=== PATIENT | female | born 2000 | race Caucasian/White ===

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

== ENCOUNTER → 2020-03-15 14:55 | Outpatient (CLI) | payer SELFPAY ==
[2020-03-15 17:00] LABS: Absolute Lymphocyte Count 1.71 X10^3/uL (0.83-4.51); Absolute Neutrophil Count 9.7 X10^3/uL (2.0-7.7); Basophil# 0.04 X10^3/uL; Basophil% 0.3 % (0-1); Eosinophil# 0.16 X10^3/uL; Eosinophils% 1.3 % (0-5); Hematocrit 36.2 % (37-47); Hemoglobin 12.4 g/dL (12.0-15.0); Lymphocyte # 1.71 X10^3/ul (4.0); Lymphocyte % 13.9 % (19-41); Mean Corp Hgb Conc 34.3 g/dL (32-36); Mean Corpuscular Hgb 29.5 pg (27.0-32.0); Mean Corpuscular Volume 86.2 fL (81-99); Mean Platelet Vol. 11.6 fl (6.2-12.0); Monocyte% 5.7 % (0-10); NRBC Flagged by Analyzer 0 % (0-5); Neutrophil # 9.65 X10^3/uL (2.7-7.7); Neutrophil % 78.6 % (47-70); Platelet Count 202 K/mm3 (150-450); RBC Distribution Width CV 12.9 % (11.6-14.6); RBC Distribution Width SD 39.9 fl (35.1-43.9); White Blood Count 12.3 K/mm3 (4.4-11.0)
[2020-03-15 17:04] LABS: Color, Urine Yellow (Yellow); Glucose, Dipstick Normal (Normal); Ketone-Dipstick Negative (Negative); Leukocyte Esterase-Dipstick 25 /ul (Negative); Nitrite-Dipstick Negative (Negative); Occult Blood-Urine 10 /ul (Negative); Protein-Dipstick Negative (Negative); Urine Bilirubin Dipstick Negative (Negative); Urine Clarity Sl. Cloudy (Clear); Urine Urobilinogen Normal (Normal)
[2020-03-15 17:42] LABS: Amphetamine Urine VISTA NEGATIVE (<1000 ng/mL); Barbiturate Urine VISTA NEGATIVE (< 200 ng/mL); Benzodiazepine Urine VISTA NEGATIVE (< 200 ng/mL); Cocaine Urine VISTA NEGATIVE (< 300 ng/mL); Ecstacy Urine VISTA NEGATIVE (< 500 ng/mL); Methadone Urine VISTA NEGATIVE (< 300 ng/mL); PCP Urine VISTA NEGATIVE (< 25 ng/mL); THC Urine VISTA NEGATIVE (< 50 ng/mL); Vista UDS pH Range 5
[2020-03-16 10:13] LABS: HIV - WCH Non-Reactive (Nonreactive); Hepatitis B Surface Antigen Non-Reactive (Nonreactive); Hepatitis C Antibody Non-Reactive (Nonreactive); Rubella IgG > 500.0 IU/mL
[2020-03-18 20:07] LABS: Chlamydia By Nucleic Acid AMP Negative (Negative); Gonococcus By Nucleic Acid AMP Negative (Negative)
[2020-03-18 20:13] LABS: V-Zoster IgG (Immunity) > 4000 index (Immune >165)
[2020-03-21 03:02] LABS: Prenatal RPR NONREACTIVE (NONREACTIVE)
== END ==
PROVIDERS: Visit Provider Student in an Organized Health Care Education/Training Program
DX: Z34.81 Encounter for supervision of other normal pregnancy, first trimester (principal); Z11.3 Encounter for screening for infections with a predominantly sexual mode of transmission
CPT/HCPCS: 36415; 80307; 81002; 85025; 86703; 86762; 86787; 86803; 87086; 87088; 87340; 87491; 87591

== ENCOUNTER → 2020-07-02 10:48 | Outpatient (CLI) | payer SELFPAY ==
[2020-07-02 14:28] LABS: Hematocrit 33.7 % (37-47); Hemoglobin 11.4 g/dL (12.0-15.0); Mean Corp Hgb Conc 33.8 g/dL (32-36); Mean Corpuscular Hgb 30.6 pg (27.0-32.0); Mean Corpuscular Volume 90.3 fL (81-99); Mean Platelet Vol. 10.5 fl (6.2-12.0); Platelet Count 223 K/mm3 (150-450); RBC Distribution Width CV 12.9 % (11.6-14.6); RBC Distribution Width SD 42.5 fl (35.1-43.9); Red Blood Count 3.73 M/mm3 (4.2-5.4); White Blood Count 8.1 K/mm3 (4.4-11.0)
[2020-07-02 14:33] LABS: Glucose Challenge Gest 1H 50g 127 mg/dL (70-140)
== END ==
PROVIDERS: Visit Provider Student in an Organized Health Care Education/Training Program
DX: Z34.82 Encounter for supervision of other normal pregnancy, second trimester (principal)
CPT/HCPCS: 36415; 82950; 85027

== ENCOUNTER → 2020-09-13 | Outpatient (CLI) | payer SELFPAY | END | disposition home or self-care (01) | LOC: LABSPEC 11:50 | PROVIDERS: Visit Provider Student in an Organized Health Care Education/Training Program | DX: Z36.85 Encounter for antenatal screening for Streptococcus B (principal) | CPT/HCPCS: 87081 ==

== ENCOUNTER → 2020-10-08 | Outpatient (CLI) | payer SELFPAY | END | disposition home or self-care (01) | LOC: LABSPEC 15:32 | PROVIDERS: Visit Provider Student in an Organized Health Care Education/Training Program | DX: Z36.85 Encounter for antenatal screening for Streptococcus B (principal) | CPT/HCPCS: 87081 ==

== ENCOUNTER → 2020-10-09 16:33 | Outpatient (CLI) | payer SELFPAY | PROVIDERS: Referring Provider Student in an Organized Health Care Education/Training Program; Visit Provider Student in an Organized Health Care Education/Training Program | DX: Z03.818 Encounter for observation for suspected exposure to other biological agents ruled out (principal) | CPT/HCPCS: 87635; C9803; U0002 ==

== ENCOUNTER 2020-10-10 02:10 | Inpatient (IN) | payer SELFPAY ==
[2020-10-10] VITALS (26 sets, daily range): BP systolic 99–120; BP diastolic 57–74; PULSE 88–137; RESP 16–18; TEMP 36.2–37.1; O2SAT 81–100; BMI 22.9
[2020-10-10] MEDS: 0.9% Saline Lock 10 ML Syringe IV ×3 (02:20→09:23)
[2020-10-10 02:33] LABS: Absolute Lymphocyte Count 3.08 X10^3/uL (0.83-4.51); Absolute Neutrophil Count 10.2 X10^3/uL (2.0-7.7); Basophil# 0.03 X10^3/uL; Basophil% 0.2 % (0-1); Eosinophil# 0.02 X10^3/uL; Eosinophils% 0.1 % (0-5); Hematocrit 37.5 % (37-47); Hemoglobin 12.8 g/dL (12.0-15.0); Lymphocyte # 3.08 X10^3/ul (0.83-4.51); Lymphocyte % 21.6 % (19-41); Mean Corp Hgb Conc 34.1 g/dL (32-36); Mean Corpuscular Hgb 28.8 pg (27.0-32.0); Mean Corpuscular Volume 84.3 fL (81-99); Mean Platelet Vol. 10.7 fl (6.2-12.0); Monocyte# 0.85 X10^3/uL; NRBC Flagged by Analyzer 0 % (0-5); Neutrophil # 10.17 X10^3/uL (2.7-7.7); Neutrophil % 71.5 % (47-70); Platelet Count 231 K/mm3 (150-450); RBC Distribution Width CV 13.5 % (11.6-14.6); RBC Distribution Width SD 41.5 fl (35.1-43.9); Red Blood Count 4.45 M/mm3 (4.2-5.4); White Blood Count 14.2 K/mm3 (4.4-11.0)
--- NOTE | 2020-10-10 02:57 | PCM.HP.BLA ---
History and Physical Date of Admission: 10/10/20 OG ANTEPARTUM RECORD - HISTORY AND PHYSICAL (10/10/2020) Name: TERRI RAMIREZ History of this : This is a 20 year old [id number] presents at 41 wks + 0 days gestation in active labor. OB Physician: Monie Mathews 's Physician: Terri Flores M.D. ...................................................................... : 99 Age: 20 Address: [address] [place] [address] Phone: [phone] Insurance Carrier: Emergency Contact: RACQUEL RAMIREZ [phone] ...................................................................... Final BETHANY: 10/03/20 By Ultrasound: 11 weeks 1 day PARITY: (G-Total Pregnancies P-Fullterm,Premature,Induced AB,Spont AB, Ectopics, Multiple,Living) BETHANY CONFIRMATION: By LMP: 12/28/19 Initial Exam: 10/03/20 By First Ultrasound Exam: 10/03/20 Final BETHANY: 10/03/20 OB PROBLEM LIST: Declines Genetics testing. EPDS 2 ALLERGIES: No Known Allergies MEDICATIONS: Calcium 500 + D 500 mg(1,250 mg)-400 unit chewable tablet Three po once daily [place] 3-6-9 1,200 mg capsule One pill by mouth once a day 28 mg iron-800 mcg tablet One pill by mouth once a day SOCIAL HISTORY: Smoking - Never Alcohol Use - RARELY not while Diet - balanced Diet, occ coffee or tea and Water tries for one gal Lifestyle - moderate stress lifestyle and Exercise - housework. Enc 20 min walking daily. Employer - [employer] Job Description - Illicit Drug Use - denies use of street drugs Sexual Activity - Residence - . LIves in a small house. Place of - [place] Spouse-Sig Other Name - Racquel Ramirez Spouse-Sig Other Occupation - self employed- construction Spouse-Sig Other Phone No - [phone] Children Name(s) - Lita ( 10/18/18) EB PRIOR DELIVERY HISTORY DEL DATE GEST LAB WT LB WT OZ TYPE ANES LABOR TX October 16 40 15 7 5 Vag Epidural No ANTEPARTUM FLOW CHART VISIT GE RTC FU F F NV U U DATE WK MD WKS HT PN HR M SS BP ED WT NV GL D EF ST __ ____ ___ __ __ ___ __ __ __ ___ __ __ __ ___ __ 11 September 40 CM 3 40 V + + 118/62 0 142 3 60 -1 04 September 39 CM 1 40 V + + 118/66 0 140 - - 3 60 -1 27 Apr 38 CM 1 39 V + + 122/60 0 140 - - 22 Apr 38 CM 1 38 V + + 98/64 0 139 tr ne 16 Apr 37 CM 1 37 V + + 106/68 0 138 - - 02 Aug 35 CM 2 35 V + + 102/68 0 135 tr - 16 Jul 32 CM 2 31 + + 112/62 0 135 - - 01 Jul 30 CM 2 30 + + 102/60 0 132 tr ne 15 Feb 28 CM 2 28 + + 102/60 0 132 tr - 02 Feb 26 CM 2 26 + + 118/68 0 130 - - 08 May 23 CM 4 23 + + 102/72 0 125 tr - 08 Apr 18 CM 4 + + 116/62 0 118 - - 13 Mar 16 + + 116/64 113 - - ANTEPARTUM NOTE(S): Oct 08 2020: Oct 01 2020: Sep 24 2020: Sep 19 2020: Sep 13 2020: GBS and LARC Aug 30 2020: Informed of GBS at next visit, decreased FM Aug 13 2020: Jul 29 2020: Jul 15 2020: Jul 02 2020: Jun 07 2020: round ligament pain May 07 2020: Apr 12 2020: COMPREHENSIVE ANTEPARTUM NOTE(S): Oct 08 2020: Terri reporting runs of ctx's, no leaking fluid, no spotting. Good FM. IOL scheduled for . She would like cervix checked, membranes stripped and IOL changed to 10/14/20--confirmed ok w/Nataliya in OB. Per Dr. John Reyes, Terri advised to get COVID test done tomorrow as she has not done this yet. GBS repeated today. NST today for Post Dates. Oct 08 2020: 40/5w visit. CE 3 cm, membranes stripped. Desires to push induction from 10/10 to 10/14. Discussed risks of post dates incluing, but not limited to IUFD. She had reactive NST today, will come Wednesday for one as well. GBS recollected. F/u Wednesday NST. CM Oct 01 2020: 39/5w. Planned for term induction 41w on 10/10/20 AROM and pit. F/u 1w. CM Oct 01 2020: Terri is pre registered. Occassional ctx. Good FM. AROM, Pitocin Induction scheduled for 10/10/20 @ 7 am with Jeannette in OB. Consent signed. Induction literature given. To get COVID test this or Wednesday; order faxed to [facility] Induction papers faxed to OB> kb Sep 24 2020: Terri has been having some ctx's every day. Declines vag exam. Good FM. Denies leaking fluid and no spotting. Advised to pre-register for L+D. [facility] Sep 24 2020: 38/5w. Will plan for induction at 41w. To schedule next visit. F/u 1w. CM Sep 19 2020: Terri is here for PNV. Feeling well with increase in energy. Doing spring cleaning. No compliants. Having good FM. No edema present today. Urine tr/neg, LSS Sep 19 2020: 38/0w visit. Occasional contractions. F/u 1w. CM Sep 17 2020: H faxed to OB Sep 13 2020: Terri is here for her PNV. Good FM. No edema present. Occasional ctx's present. GBS consent signed. LARC reviewed and declined. Sep 13 2020: 37/1w. GBS done. F/u 1w. CM Aug 30 2020: Terri is here for a PNV. FM present but less than usual. No edema. Denies any concerns expressed. Informed of GBS and LARC at next visit. Aug 30 2020: 35/1w visit. Reports some movement this morning, but not usual. movement palpated on exam. NST REACTIVE. Kick counts reviewed. F/u 2w. CM Aug 13 2020: Terri reporting good FM. No edema. Overall feeling well. Voicing no concerns. [facility] Aug 13 2020: 32/5w visit. Feeling well. DIscussed Figueroa Dia contractions and when to call. F/u 2w. CM Jul 29 2020: Terri is here for PNV. States she feels really good. No concerns for today. Having good FM but has noticed that is has changed. Explained it is due to size of baby growing. No issues wtih edema. Urine tr/neg. LSS Jul 29 2020: 30/4w visit. Visible movement on exam. F/u 2w. cm Jul 15 2020: Terri is here for appt at 28.4 w gest. Feeling better. Baby active. Excited this is a boy and they have a girl at home. No specific concerns. DRC. Jul 15 2020: 28/4w visit. Feeling well. F/u 2w. CM Jul 02 2020: 1 hr Glucose, CBC drawn this morning. Good FM. Round ligament pain is less. She had a visit w/her chiropractor, which she thinks helped. kb Jul 02 2020: 26/5w visit. GTT done today. F/u 2w. CM Jun 07 2020: Terri is here for a PNV. Good FM. No edema present. Pt would like to take blood sugars instead of doing glucose testing. Reports round ligament pain that is very severe and consistent. No other concerns. MK Jun 07 2020: 23/1w visit. Glucose bottle given. Round ligament pain - supportive care provided. f/u 4w. CM May 07 2020: Terri reporting FM. Comprehensive US today. Declines genetics testing. kb May 07 2020: 18/5w visit today. Anatomy wnl, no previa. reported some pain one night, resolved. Precautions discussed. F/u 4w. 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 Their daughter, Lita is 18 months, born after 15 h labor w no complications and nursed 9 mo. Terri has NKA to drugs, latex or food. She has Spring and Fall seasonal Apr 12 2020: 15/1w visit today. Feeling well. BSUS +HR and movement. Pt would like to defer glucola - discussed importance for her and baby, will consider 2w of glucose checking at home. F/u 4w with anatomy CM Mar 15 2020: Terri is here for missed menses. LMP 12/28/2019. . Positive UPT. BETHANY 10/03/2020. Updated medications, allergies and hx. Has some nausea and vomiting in the evenings. No other concerns. Reviewed informational packet. GC/CHL today, consent signed. paperwork completed: PHQ-9 score of 2, Declined AFP/CF testing. REVIEW OF SYSTEMS: GENERAL - Denies fever, or chills SKIN - Denies rash, new skin lesions, or change in moles EYES - Denies blurred vision, or change in visual acuity EARS - Denies ear pain, or difficulty hearing NOSE - Denies nasal congestion, discharge, or bleeding MOUTH - Denies sore throat, or difficulty swallowing NECK - Denies pain or swelling RESPIRATORY - Denies shortness of breath, cough, wheezing CARDIOVASCULAR - Denies palpitations, chest pain, orthopnea, PND, peripheral edema, syncope or claudication GASTROINTESTINAL - Denies nausea, vomiting, diarrhea, constipation, Denies abdominal pain, melena and or bright red blood GENITOURINARY - Denies dysuria, frequency of urination, urgency, or hesitancy MUSCULOSKELETAL - Denies joint or muscle pain, or back pain NEUROLOGICAL - Denies localized numbness, weakness, or tingling PSYCHIATRIC - Denies depression, anxiety, substance abuse or suicide attempts ENDOCRINE - Denies heat or cold intolerance, weight loss or gain, increasing thirst HEMATO-IMMUNOLOGIC - Denies easy bruising, bleeding, oral ulcerations or recurrent infections GENETICS SCREENING: Age 35+ years: No Thalassemia: No Neural Tube Defect: Yes nephew Down Syndrome: Yes AIDAN-SACHS: No Sickle Cell Disease: No Hemophilia: No Musc. Dystrophy: No Cystic Fibrosis: No-declines screening Ramah Chorea: No Mental Retardation: No Fragile X: No Other genetic: No Other defects: No SABs/still births: No Drugs since LMP: No Comments: Her brother has child w Down's INFECTION HISTORY: High risk AIDS: No High risk Hepatitis: No Exposed to TB: No Exposed to Herpes: No Rash/viral illness since LMP: No History of STD: No MENSTRUAL HISTORY: *Menses Amount/Duration: 3-4 DAYSMenses Regularity: RegularFrequency: monthlyMenarche (Age Onset): 11* PAST SUMMARY: PARITY: 1. Total Pregnancies............ 2 2. Full Term Pregnancies........ 1 3. Premature.................... 0 4. Abortions - Induced.......... 0 5. Abortions - Spontaneous...... 0 6. Ectopics..................... 0 7. Multiple Births.............. 0 8. Living Children.............. 1 PAST #1: Date of :.................. 10/18/18 Gestation Weeks:................ 40 Length of labor(hours):......... 15 Sex:............................ F Weight-lbs:............... 7 Weight-oz:................ 5 Type of Delivery:............... Vag Type of Anesthesia:............. Epidural Place of Delivery:.............. [place] Treatment of Labor?:.... No Comment: NO PHYSICAL EXAMINATION General Appearence: 20 yo female in no acute distress Vital Signs: AF, VSS Heart: RRR without rubs or gallops Lungs: CTA x 2 Breasts: deferred Abdomen: gravid Pelvis: Cervix: 8 cm 95% effaced Presentation: cephalic Station: -1 Fetus: Size: AGA Movement: present Heart: present LAB TEST(S) ORDERED SINCE:01/07/20 03/21/2020 RPR 03/18/2020 V-ZOSTER IGG (IMMUNITY) 03/18/2020 CHLAMYDIA/GC [place] APTIMA 03/17/2020 CULTURE, URINE 03/16/2020 RUBELLA IGG 03/16/2020 HIV - WC 03/16/2020 HEPATITIS C ANTIBODY 03/16/2020 HEPATITIS B SURFACE ANTIGEN 03/15/2020 URINE DRUG SCREEN (VISTA) 03/15/2020 URINALYSIS, ROUTINE (DIPSTICK) 03/15/2020 T AND S-NO CHARGE W/PNP 03/15/2020 CBC W/DIFF, AUTOMATED 10/10/2020 CBC W/DIFF, AUTOMATED 10/09/2020 COVID 19, [place] [facility](RT COLLECT) 09/18/2020 CULTURE, GROUP B STREPTOCOCCUS 07/02/2020 GLUCOSE CHALLENGE GEST 1H 50G 07/02/2020 CBC-COMPLETE BLOOD CNT NO DIFF == ==== Order Observation Description Value Ref_Range A* Site == ==== CBC W/DIFF, AUT NOTE [place] CBC W/DIFF, AUT WBC 14.2 K/mm3 4.4-11.0 H ML CBC W/DIFF, AUT RBC 4.45 M/mm3 4.2-5.4 ML CBC W/DIFF, AUT HGB 12.8 g/dL 12.0-15.0 ML CBC W/DIFF, AUT HCT 37.5 37-47 ML CBC W/DIFF, AUT MCV 84.3 fL 81-99 ML CBC W/DIFF, AUT MCH 28.8 pg 27.0-32.0 ML CBC W/DIFF, AUT MCHC 34.1 g/dL 32-36 ML CBC W/DIFF, AUT RDW CV 13.5 11.6-14.6 ML CBC W/DIFF, AUT RDW SD 41.5 fl 35.1-43.9 ML CBC W/DIFF, AUT PLT 231 K/mm3 150-450 ML CBC W/DIFF, AUT MPV 10.7 fl 6.2-12.0 ML CBC W/DIFF, AUT NEUT% 71.5 47-70 H ML CBC W/DIFF, AUT LY% 21.6 19-41 ML CBC W/DIFF, AUT MONO% 6.0 0-10 ML CBC W/DIFF, AUT EO% 0.1 0-5 ML CBC W/DIFF, AUT BASO% 0.2 0-1 ML CBC W/DIFF, AUT IG% 0.600 0.0-0.9 ML IG% - Immature Granulocytes (promyelocytes, myelocytes and metamyelocytes) > 1% indicates that a LEFT SHIFT is Present. CBC W/DIFF, AUT ABSOLUTE NEUT 10.2 X10 3/uL 2.0-7.7 H ML CBC W/DIFF, AUT ABSOLUTE LYMPH 3.08 X10 3/uL 0.83-4.51 ML CBC W/DIFF, AUT NUCLEATED RBC 0 0-5 ML COVID 19, [place] NOTE [place] COVID 19, [place] COVID-19,[place] Not Detected Not Detect ML Normal Reference Range: Not Detected Method:(RT-PCR) real-time reverse transcriptase PCR Intralignex Kmsocial Instrument *The Food and Drug Administration (FDA) has issued an Emergency Use Authorization (EAU) for the Kmsocial SARS-CoV-2 Assay for the rapid detection of the virus that causes COVID-19. This test has been validated, but the FDAs independent review of this validation is pending. *Negative results do not preclude infection and should not be used as the sole basis for treatment or patient management. Optimum specimen types and timing for peak viral levels during infections caused by SARS-CoV-2 have not been determined. Collection of multiple specimens from the same patient may be necessary to detect the virus. The possibility of a false negative result should be considered if the patient has clinical presentation or has had recent exposure. CULTURE, GROUP NOTE [place] GLUCOSE CHALLEN NOTE [place] GLUCOSE CHALLEN GLU GEST 50G 1H 127 mg/dL 70-140 ML CBC-COMPLETE BL NOTE [place] CBC-COMPLETE BL WBC 8.1 K/mm3 4.4-11.0 ML CBC-COMPLETE BL RBC 3.73 M/mm3 4.2-5.4 L ML CBC-COMPLETE BL HGB 11.4 g/dL 12.0-15.0 L ML CBC-COMPLETE BL HCT 33.7 37-47 L ML CBC-COMPLETE BL MCV 90.3 fL 81-99 ML CBC-COMPLETE BL MCH 30.6 pg 27.0-32.0 ML CBC-COMPLETE BL MCHC 33.8 g/dL 32-36 ML CBC-COMPLETE BL RDW CV 12.9 11.6-14.6 ML CBC-COMPLETE BL RDW SD 42.5 fl 35.1-43.9 ML CBC-COMPLETE BL PLT 223 K/mm3 150-450 ML CBC-COMPLETE BL MPV 10.5 fl 6.2-12.0 ML RPR NOTE [place] RPR RPR NONREACTIVE NONREACTIVE ML CHLAMYDIA/GC NA NOTE [place] CHLAMYDIA/GC NA CHLAMY,NUC ACID Negative Negative LC CHLAMYDIA/GC NA GC BY NUC ACID Negative Negative LC V-ZOSTER IGG (I NOTE [place] V-ZOSTER IGG (I VZOST IGG 63059 > 4000 index Immune >165 LC Negative <135 Equivocal 135 - 165 Positive >165 A positive result generally indicates exposure to the pathogen or administration of specific immunoglobulins, but it is not indication of active infection or stage of disease. Performed at: = - [facility] [id number] Tomography Technologist: Janice Muñoz MD, Phone: [phone] Performed at: - [facility] [id number] Tomography Technologist: Rajat Thomas PhD, Phone: [phone] CULTURE, URINE NOTE [place] HEPATITIS C ANT NOTE [place] HEPATITIS C ANT HEPATITIS C AB Non-Reactive Nonreactive ML Non Reactive: < 0.8 Equivocal: >/= 0.8 to < 1.0 Reactive: >/= 1.0 The CDC recommends that a reactive/equivocal HCV antibody result be followed up by the HCV Nucleic Acid Amplification test (155823) HEPATITIS B JULIANA NOTE [place] HEPATITIS B JULIANA HEPB SURFACE AG Non-Reactive Nonreactive ML HIV - [facility] NOTE [place] HIV - [facility] HIV - [facility] Non-Reactive Nonreactive ML RUBELLA IGG NOTE [place] RUBELLA IGG RUBELLA IGG > 500.0 IU/mL ML Antibody results Interpretation of Immune Status < 5 IU/ml Presumed Non-immune 5 - < 10 IU/ml Equivocal > or = 10 IU/ml Presumed Immune Reason for Type AND Screen/Red Cells: Surgery? [facility]~[address] [place], [address]~ T AND BLOOD TYPE GEL O POSITIVE N ML T AND AB SCREEN GEL NEGATIVE N ML URINE DRUG SCRE NOTE [place] URINE DRUG SCRE TO BE CONFIRMED ML CONFIRMATORY TESTING FOR ALL POSITIVE URINE DRUG SCREEN RESULTS WILL ONLY BE SENT OUT UPON PHYSICIAN ORDER. VISTA Urine Drug Screen methods provide only preliminary analytical test results. A more specific alternate chemical method must be used in order to obtain a confirmed analytical result. Gas chromatography/mass spectrometery (GC/MS) is the preferred confirmatory method. Clinical consideration and professional judgement should be applied to any drug of abuse test result, particularly when preliminary positive results are used. URINE TCA TESTING MUST BE ORDERED SEPARATELY. USE TEST MNEMONIC: UTCA URINE DRUG SCRE VISTA UDS PH 5 ML URINE DRUG SCRE AMPHETAMINES NEGATIVE <1000 ng/mL ML URINE DRUG SCRE BARBITIURATES NEGATIVE < 200 ng/mL ML URINE DRUG SCRE BENZODIAZIPINE NEGATIVE < 200 ng/mL ML URINE DRUG SCRE COCAINE NEGATIVE < 300 ng/mL ML URINE DRUG SCRE ECSTACY NEGATIVE < 500 ng/mL ML URINE DRUG SCRE METHADONE NEGATIVE < 300 ng/mL ML URINE DRUG SCRE OPIATES NEGATIVE < 300 ng/mL ML URINE DRUG SCRE PCP NEGATIVE < 25 ng/mL ML URINE DRUG SCRE THC NEGATIVE < 50 ng/mL ML URINALYSIS, ROU NOTE [place] URINALYSIS, ROU COLOR Yellow Yellow ML URINALYSIS, ROU CLARITY Sl. Cloudy Clear ML URINALYSIS, ROU GLUCOSE, UR Normal mg/dl Normal ML URINALYSIS, ROU BILIRUBIN URINE Negative mg/dL Negative ML URINALYSIS, ROU KETONE UR Negative mg/dl Negative ML URINALYSIS, ROU SP.GR. DIPSTX 1.020 1.002-1.030 ML URINALYSIS, ROU PH UR 6.0 5.0 - 8.0 ML URINALYSIS, ROU PROT DIPSTX Negative mg/dl Negative ML URINALYSIS, ROU UROBILI Normal mg/dl Normal ML URINALYSIS, ROU NITRITE UR Negative Negative ML URINALYSIS, ROU OCCULT BLOOD-UR 10 /ul Negative H ML URINALYSIS, ROU LEUK ESTERASE 25 /ul Negative H ML CBC W/DIFF, AUT NOTE [place] CBC W/DIFF, AUT WBC 12.3 K/mm3 4.4-11.0 H ML CBC W/DIFF, AUT RBC 4.20 M/mm3 4.2-5.4 ML CBC W/DIFF, AUT HGB 12.4 g/dL 12.0-15.0 ML CBC W/DIFF, AUT HCT 36.2 % 37-47 L ML CBC W/DIFF, AUT MCV 86.2 fL 81-99 ML CBC W/DIFF, AUT MCH 29.5 pg 27.0-32.0 ML CBC W/DIFF, AUT MCHC 34.3 g/dL 32-36 ML CBC W/DIFF, AUT RDW CV 12.9 % 11.6-14.6 ML CBC W/DIFF, AUT RDW SD 39.9 fl 35.1-43.9 ML CBC W/DIFF, AUT PLT 202 K/mm3 150-450 ML CBC W/DIFF, AUT MPV 11.6 fl 6.2-12.0 ML CBC W/DIFF, AUT NEUT% 78.6 % 47-70 H ML CBC W/DIFF, AUT LY% 13.9 % 19-41 L ML CBC W/DIFF, AUT MONO% 5.7 % 0-10 ML CBC W/DIFF, AUT EO% 1.3 % 0-5 ML CBC W/DIFF, AUT BASO% 0.3 % 0-1 ML CBC W/DIFF, AUT IM GRAN % 0.200 % 0.0-0.9 ML IG% - Immature Granulocytes (promyelocytes, myelocytes and metamyelocytes) > 1% indicates that a LEFT SHIFT is Present. CBC W/DIFF, AUT ABSOLUTE NEUT 9.7 X10 3/uL 2.0-7.7 H ML CBC W/DIFF, AUT ABSOLUTE LYMPH 1.71 X10 3/uL 0.83-4.51 ML CBC W/DIFF, AUT NRBC, FLAGGED 0 % 0-5 ML ALEXSANDRA Culture No Group B Beta Streptococcus isolated. Urine Culture ORGANISM 1: Mixed Gram Positive Organisms [place] Count 25,000-50,000 MIX CULTURE Mixed contaminants. Submit a new specimen if indicated. == ==== Impression /Plan: 41 wks + 0 days intrauterine in active labor. Preparations in progress for delivery.
[2020-10-10] MEDS: Oxytocin 30 units/NS 500 ml 30 UNITS/500 ML IV.SOLN 334 UNITS IV (05:05)
--- NOTE | 2020-10-10 05:21 | EX.PCM.OBRPT ---
Assessment & Plan (1) Normal labor and delivery: Vaginal Delivery Maternal Presentation Maternal Presentation: Active Labor Operative Information Date of Procedure: 10/10/20 Pre-Operative Diagnosis: IUP Post-Operative Diagnosis: IUP Surgery / Procedure Performed: Spontaneous Vaginal Delivery Type of Anesthesia: Local with 1% Lidocaine Estimated Blood Loss: 250 cc Fluids Replaced: Crystalloid Findings Description of Procedure: Spontaneous vaginal delivery of a viable No episiotomy. First-degree midline laceration repaired with 3-0 Rapide suture male with Apgars of 8/9 from an occiput under local.anterior presentation with clear amniotic fluid and normal three-vessel placenta. Sponges okay. Delivery physician: Rolando Leiva MD. Presentation: Vertex Amniotic Membrane Rupture Type: Artificial Amniotic Fluid Description: Clear Placental Delivery Description: Spontaneous Placenta Disposition: [facility] Cord Vessel Description: 3 Vessels Cord Entanglement: None A Gender: Male (1 minute): 8 (5 minute): 9 Post Vaginal Delivery Medications Given After Delivery: IV Pitocin Episiotomy Description: None Laceration: Midline and 1st degree Complication Complications: None
[2020-10-10] MEDS: Acetaminophen 325 MG Tablet PO (05:23)
--- NOTE | 2020-10-10 05:28 | PCM.DC ---
Discharge Instructions Diet Discharge Diet: No restrictions Activity Discharge Activity: May Shower and May Take a Tub Bath May resume sexual activity in: 4-6 weeks Additional Activity Instructions:: Nothing in the vagina for 4-6 weeks. You may return to work/school in 6 weeks. Dressing / Incision Call your doctor if you observe: Fever of 101 or Higher, Inability to urinate, Inability to have a bowel movement and Using more than one pad per hour Follow Up Care Please Follow Up With: Monie Reyes DO When: Call [phone] to make an appointment with your doctor in 6 weeks. Test Results: Test results from this visit will be discussed in further detail at your follow-up appointment, if applicable. Discharge Plan Admission Admit Date/Time: 10/10/20 02:10 Primary Reason for Your Visit: Vaginal Delivery Attending Provider: Rolando Leiva Primary Care Provider: Care Shilpa Sheikh Primary Discharge Orders/Prescriptions Prescriptions: No Action PNV cmb#[id number] fumarate-FA [ Multivitamins] 1 EACH tablet 1 ea PO DAILY RF: 0 calcium carbonate 500 MG tablet,chewable 500 mg PO DAILY RF: 0 Referrals / Follow Up: Care Physician,No Primary [Primary Care Provider] - Disposition Disposition (needs filled in before D/C Order can be placed): Home, self care
[2020-10-10] MEDS: Acetaminophen 500 MG Tablet 1000 MG PO (19:41)
[2020-10-11 00:05] VITALS: BP 103/58; PULSE 88
[2020-10-11 00:07] VITALS: BP 103/58; PULSE 88; RESP 16; TEMP 36.5
[2020-10-11 04:45] VITALS: BP 109/56; PULSE 85; RESP 16; TEMP 36.9
[2020-10-11 09:15] VITALS: BP 116/76; PULSE 68; RESP 14; TEMP 36.6; O2SAT 98
--- NOTE | 2020-10-11 09:32 | PCM.PN.OB ---
Subjective Subjective Patient without complaints. Breast-feeding going well. Minimal vaginal bleeding. Wants to go home today. Objective Data Objective Data Vital Signs: Vital Signs Temp Pulse Resp BP Pulse Ox 98.5 F 85 16 109/56 L 99 10/11/20 04:45 10/11/20 04:45 10/11/20 04:45 10/11/20 04:45 10/10/20 19:30 Oxygen Delivery Method Room Air Weight: 142 lb 6.698 oz Body Mass Index (BMI) 22.9 Intake & Output: Intake and Output for Last 24 Hours 10/09/20 10/10/20 10/11/20 23:59 23:59 23:59 Intake Total 500 / 500 Balance 500 / 500 Lab / Micro Data Result Diagrams: 10/10/20 02:20 Assessment & Plan (1) Normal labor and delivery: PLAN: Doing well day #1 status post routine spontaneous vaginal delivery. Will discharge to home with routine instructions.
[2020-10-11 09:55] VITALS: TEMP 36.6
[2020-10-11 09:56] VITALS: BP 116/76; PULSE 95
== END 2020-10-11 10:15 | disposition home or self-care (01) | DRG 807 ==
LOC: WPOUT 02:12 → WP 02:12
PROVIDERS: Admitting Provider Obstetrics & Gynecology; Visit Provider Obstetrics & Gynecology
DX: O48.0 Post-term pregnancy (principal); Z37.0 Single live birth; Z3A.41 41 weeks gestation of pregnancy; O70.0 First degree perineal laceration during delivery
CPT/HCPCS: 59025; 59050; 85025; 86850; 86900; 86901; 99218; A4216; G0378